=== PATIENT | female | born 1995 | race Caucasian/White ===

== ENCOUNTER 2018-03-07 15:03 | Emergency (ER) | payer MEDICAID ==
[~2018-03-07] VITALS: Ht 175.3 cm; Wt 86.4 kg
[~2018-03-07 15:03] MED LIST: CEPH500C5 PO; DEC4T PO; HYDR-569 PO
[2018-03-07 15:18] VITALS: BP 115/60
[2018-03-07] MEDS ORDERED: BUPIVAcaine/PF 2.5 mg/ml (0.25%) 30ml vial IJ ONE (15:55)
[2018-03-07] MEDS ORDERED: acetaminophen 325mg tablet PO ONE (16:25)
[2018-03-07] MEDS ORDERED: ibuprofen tablet 400 MG TABLET PO ONE (16:25)
== END 2018-03-07 16:30 | disposition home or self-care (01) ==
LOC: ER 15:03
DX: L02.213 Cutaneous abscess of chest wall (principal); F15.10 Other stimulant abuse, uncomplicated; F11.10 Opioid abuse, uncomplicated; Z79.899 Other long term (current) drug therapy
CPT/HCPCS: 10060; 99283; J3490

== ENCOUNTER 2018-04-20 23:19 | Emergency (ER) | payer MEDICAID ==
[~2018-04-20] VITALS: Ht 175.3 cm; Wt 85.2 kg
[2018-04-20 23:32] VITALS: BP 117/71
[2018-04-20] MEDS ORDERED: SULF1TAB49 PO (23:52)
[2018-04-20] MEDS ORDERED: CEPH-572 PO (23:52)
== END 2018-04-21 00:02 | disposition home or self-care (01) ==
LOC: ER 23:20
DX: L03.115 Cellulitis of right lower limb (principal); F15.10 Other stimulant abuse, uncomplicated; F11.10 Opioid abuse, uncomplicated; Z59.0 Homelessness; Z79.899 Other long term (current) drug therapy
CPT/HCPCS: 29105; 96374; 99283; 99284

== ENCOUNTER 2018-06-02 07:59 | Emergency (ER) | payer MEDICAID ==
[~2018-06-02] VITALS: Ht 175.3 cm; Wt 88.0 kg
[~2018-06-02 07:59] MED LIST changes: -CEPH500C5 PO
[2018-06-02 08:00] VITALS: BP 126/86
[2018-06-02] MEDS ORDERED: bacitracin 15gm ointment TP ONE (08:10)
[2018-06-02] MEDS ORDERED: LIDOcaine 1.5% w/epinephrine 1:200,000 5ml ampul IJ ONE (08:10)
[2018-06-02] MEDS ORDERED: acetaminophen 325mg tablet PO ONE (08:10)
[2018-06-02] MEDS ORDERED: CLIN150C8 PO (09:43)
== END 2018-06-02 09:50 | disposition home or self-care (01) ==
LOC: ER 08:00
DX: L02.413 Cutaneous abscess of right upper limb (principal); F15.90 Other stimulant use, unspecified, uncomplicated; F11.90 Opioid use, unspecified, uncomplicated; Z86.14 Personal history of Methicillin resistant Staphylococcus aureus infection; Z79.899 Other long term (current) drug therapy; Z59.0 Homelessness
CPT/HCPCS: 10060; 99283; A6255; A6266; A6449; J3490

== ENCOUNTER 2019-01-17 01:26 | Emergency (ER) | payer MEDICAID ==
[~2019-01-17] VITALS: Ht 175.3 cm; Wt 83.5 kg
[~2019-01-17 01:26] MED LIST changes: +CLIN150C8 PO; +HYDR-4383 PO; -HYDR-569 PO
[2019-01-17 01:29] VITALS: BP 127/77
[2019-01-17] MEDS ORDERED: SULF1TAB49 PO (02:28)
== END 2019-01-17 02:39 | disposition home or self-care (01) ==
LOC: ER 01:27
DX: L03.116 Cellulitis of left lower limb (principal); F41.9 Anxiety disorder, unspecified; F15.90 Other stimulant use, unspecified, uncomplicated; F11.90 Opioid use, unspecified, uncomplicated; F17.200 Nicotine dependence, unspecified, uncomplicated; Z59.0 Homelessness
CPT/HCPCS: 99283

== ENCOUNTER 2019-11-19 20:44 | Emergency (ER) | payer MEDICAID, OTHER ==
[~2019-11-19] VITALS: Ht 175.3 cm; Wt 109.1 kg
[~2019-11-19 20:44] MED LIST changes: +LIDOcaine 1% W/epiNEPHrine 1:100,000 20ml vial ONE
[2019-11-19 20:45] VITALS: BP 130/77
[2019-11-19] MEDS ORDERED: clindamycin 150mg capsule PO ONE (21:00)
[2019-11-19] MEDS ORDERED: ondansetron 4mg rapidly disintigrating tab PO ONE (21:00)
[2019-11-19] MEDS ORDERED: ketorolac trometh inj. 60 MG/2 ML VIAL IM ONE (21:00)
[2019-11-19] MEDS ORDERED: CLIN150C8 PO (21:20)
== END 2019-11-19 21:27 | disposition home or self-care (01) ==
LOC: ER 20:45
DX: L02.415 Cutaneous abscess of right lower limb (principal); F41.9 Anxiety disorder, unspecified; F15.90 Other stimulant use, unspecified, uncomplicated; F11.90 Opioid use, unspecified, uncomplicated; Z59.0 Homelessness; Z86.14 Personal history of Methicillin resistant Staphylococcus aureus infection; Z79.899 Other long term (current) drug therapy
CPT/HCPCS: 10060; 96372; 99283; J1885

== ENCOUNTER 2019-12-11 15:04 | Emergency (ER) | payer MEDICAID, OTHER ==
[~2019-12-11] VITALS: Ht 175.3 cm; Wt 104.0 kg
[~2019-12-11 15:04] MED LIST changes: -LIDOcaine 1% W/epiNEPHrine 1:100,000 20ml vial ONE
[2019-12-11] MEDS ORDERED: sulfamethoxazole/trimethoprim DS (800/160mg) tablet PO ONE (16:05)
[2019-12-11] MEDS ORDERED: CEPH250T PO (16:06)
[2019-12-11] MEDS ORDERED: IBUP-1984 PO (16:06)
[2019-12-11] MEDS ORDERED: BACDS PO (16:06)
[2019-12-11 16:18] VITALS: BP 139/93
== END 2019-12-11 16:20 | disposition home or self-care (01) ==
LOC: ER 15:04
DX: L03.114 Cellulitis of left upper limb (principal); F15.90 Other stimulant use, unspecified, uncomplicated; F11.90 Opioid use, unspecified, uncomplicated; Z86.14 Personal history of Methicillin resistant Staphylococcus aureus infection; Z59.0 Homelessness
CPT/HCPCS: 99283

== ENCOUNTER 2020-02-16 10:10 | Emergency (ER) | payer MEDICAID, OTHER ==
[~2020-02-16] VITALS: Ht 175.3 cm; Wt 109.0 kg
[2020-02-16 10:14] VITALS: BP 163/83
[2020-02-16] MEDS ORDERED: DOXY100C76 PO (10:18)
[2020-02-16] MEDS ORDERED: CefTRIAXone 250MG IM Kit w/LIDOcaine IM ONE (10:20)
[2020-02-16] MEDS ORDERED: CefTRIAXone 250MG inj IM ONE (10:20)
--- NOTE | 2020-02-16 10:31 | NUR ---
patient giving ua then rocephin IM will be administered
--- NOTE | 2020-02-16 11:02 | NUR ---
patient having trouble giving a UA, gave more water to patient to drink,will try again shortly
[2020-02-16 11:40] LABS: URINE HCG NEGATIVE (NEG)
[2020-02-16 11:46] LABS: CLARITY,URINE CLEAR (Clear); COLOR,URINE YELLOW (Yellow); GLUCOSE, URINE NEGATIVE (Neg); KETONES,URINE NEGATIVE (Neg); LEUKOCYTE ESTERASE ,URINE NEGATIVE (Neg); NITRITES, URINE NEGATIVE (Neg); OCCULT BLOOD,URINE NEGATIVE (Neg); PROTEIN,URINE NEGATIVE (Neg)
[2020-02-16 11:51] LABS: UA COLLECTION TYPE VOIDED
== END 2020-02-16 11:35 | disposition home or self-care (01) ==
LOC: ER 10:11
DX: R30.0 Dysuria (principal); N89.8 Other specified noninflammatory disorders of vagina; F41.9 Anxiety disorder, unspecified; F15.90 Other stimulant use, unspecified, uncomplicated; F11.90 Opioid use, unspecified, uncomplicated; Z20.2 Contact with and (suspected) exposure to infections with a predominantly sexual mode of transmission; Z59.0 Homelessness; Z86.14 Personal history of Methicillin resistant Staphylococcus aureus infection
CPT/HCPCS: 36415; 81003; 81025; 87491; 87591; 96372; 99283; J0696

== ENCOUNTER 2020-06-11 22:17 | Emergency (ER) | payer OTHER ==
[~2020-06-11] VITALS: Ht 175.3 cm; Wt 114.7 kg
[2020-06-11] MEDS ORDERED: LIDOcaine 1% W/epiNEPHrine 1:200,000 10ml vial IJ ONE (23:55)
[2020-06-12 00:21] LABS: CLARITY,URINE CLEAR (Clear); COLOR,URINE YELLOW (Yellow); GLUCOSE, URINE NEGATIVE (Neg); KETONES,URINE NEGATIVE (Neg); LEUKOCYTE ESTERASE ,URINE NEGATIVE (Neg); NITRITES, URINE NEGATIVE (Neg); OCCULT BLOOD,URINE LARGE (Neg); PH,URINE 6.5 (4.8-8.0); PROTEIN,URINE TRACE mg/dl (Neg)
[2020-06-12 00:23] LABS: URINE HCG NEGATIVE (NEG)
[2020-06-12] MEDS ORDERED: sulfamethoxazole/trimethoprim DS (800/160mg) tablet PO ONE (00:25)
[2020-06-12] MEDS ORDERED: cephalexin 500mg capsule PO ONE (00:25)
[2020-06-12 00:29] LABS: UA COLLECTION TYPE CLN CATCH MIDSTREAM
[2020-06-12 00:31] LABS: BACTERIA,URINE FEW /HPF (Neg); SQUAMOUS EPITHELIAL CELL,UR FEW /LPF (FEW); WBC,URINE 0-4 /HPF (0-4)
[2020-06-12 00:46] LABS: ALANINE AMINOTRANSFERASE 112 U/L (12-78); ALBUMIN 3.4 G/DL (3.4-5.0); ALBUMIN/GLOBULIN RATIO 0.6 (1.1-1.5); ALKALINE PHOSPHATASE 113 IU/L (46-116); ANION GAP 9 (8-16); ASPARTATE AMINO TRANSFERASE 82 U/L (10-37); BILIRUBIN,TOTAL 0.5 MG/DL (0.1-1.0); BLOOD UREA NITROGEN 13 MG/DL (7-18); BUN/CREATININE RATIO 16.3 (6.6-38.0); CALCIUM 8.8 MG/DL (8.5-10.1); CHLORIDE 101 MMOL/L (99-107); GLUCOSE 93 MG/DL (70-104); POTASSIUM 3.5 MMOL/L (3.5-5.1); SODIUM 135 MMOL/L (135-145); TOTAL CARBON DIOXIDE 25.1 MMOL/L (24-32); TOTAL PROTEIN 8.7 G/DL (6.4-8.2); eGFR 87 ML/MIN
[2020-06-12] MEDS ORDERED: BACDS PO (00:48)
[2020-06-12] MEDS ORDERED: CEPH250T PO (00:48)
[2020-06-12 00:52] VITALS: BP 118/78
== END 2020-06-12 00:53 | disposition home or self-care (01) ==
LOC: ER 22:17
DX: L02.511 Cutaneous abscess of right hand (principal); L03.113 Cellulitis of right upper limb; F41.9 Anxiety disorder, unspecified; F15.90 Other stimulant use, unspecified, uncomplicated; F11.90 Opioid use, unspecified, uncomplicated; Z86.14 Personal history of Methicillin resistant Staphylococcus aureus infection; Z59.0 Homelessness; Z79.2 Long term (current) use of antibiotics
CPT/HCPCS: 10060; 36415; 80053; 81001; 81025; 87070; 87077; 87186; 99283

== ENCOUNTER 2020-11-04 13:46 | Emergency (ER) | payer MEDICAID ==
[~2020-11-04] VITALS: Ht 175.3 cm; Wt 121.8 kg
[2020-11-04 13:53] VITALS: BP 113/69
[2020-11-04] MEDS ORDERED: azithromycin 250mg tablet PO ONE (14:45)
[2020-11-04] MEDS ORDERED: CefTRIAXone 250MG IM Kit w/LIDOcaine IM ONE (14:45)
== END 2020-11-04 15:33 | disposition home or self-care (01) ==
LOC: ER 13:47
DX: N89.8 Other specified noninflammatory disorders of vagina (principal); F15.90 Other stimulant use, unspecified, uncomplicated; Z86.14 Personal history of Methicillin resistant Staphylococcus aureus infection; Z59.0 Homelessness; Z72.89 Other problems related to lifestyle
CPT/HCPCS: 36415; 87491; 87591; 96372; 99283; J0696

== ENCOUNTER 2022-03-28 15:27 | Emergency (ER) | payer MEDICAID ==
[~2022-03-28] VITALS: Ht 175.3 cm; Wt 145.4 kg
[2022-03-28 15:56] VITALS: BP 115/75
[2022-03-28] MEDS ORDERED: CefTRIAXone 1000mg IM Kit (w/lidocaine diluent) IM STA (16:36)
[2022-03-28] MEDS ORDERED: NAPR-56 PO (16:39)
[2022-03-28] MEDS ORDERED: CEPH250T PO (16:39)
[2022-03-28] MEDS ORDERED: azithromycin 250mg tablet PO ONE (16:40)
[2022-03-28] MEDS ORDERED: CefTRIAXone 500MG IM Kit w/LIDOcaine IM STA (16:42)
[2022-03-28 17:06] LABS: URINE HCG NEGATIVE (NEG)
[2022-03-28 17:12] LABS: CLARITY,URINE CLOUDY (Clear); COLOR,URINE YELLOW (Yellow); GLUCOSE, URINE NEGATIVE (Neg); KETONES,URINE NEGATIVE (Neg); LEUKOCYTE ESTERASE ,URINE SMALL (Neg); NITRITES, URINE NEGATIVE (Neg); OCCULT BLOOD,URINE NEGATIVE (Neg); PROTEIN,URINE NEGATIVE (Neg); UROBILINOGEN,URINE 0.2 E.U/dL (0.2-1.0)
[2022-03-28 17:13] LABS: UA COLLECTION TYPE VOIDED
[2022-03-28 17:37] LABS: MUCUS STRANDS MODERATE /LPF (Neg); SQUAMOUS EPITHELIAL CELL,UR MANY /LPF (FEW)
[2022-03-28 17:38] LABS: WBC,URINE 20-30 /HPF (0-4)
[2022-03-28 17:42] LABS: BACTERIA,URINE 1+ /HPF (Neg); RBC,URINE 0-2 /HPF (0-2); TRICHOMONAS,URINE MANY /HPF (NEGATIVE)
[2022-03-28 17:43] LABS: WBC CLUMPS,URINE MODERATE /HPF (NEGATIVE)
== END 2022-03-28 17:03 | disposition home or self-care (01) ==
LOC: ER 15:28
DX: K04.7 Periapical abscess without sinus (principal); N89.8 Other specified noninflammatory disorders of vagina; R30.0 Dysuria; R22.0 Localized swelling, mass and lump, head; F41.9 Anxiety disorder, unspecified; F15.90 Other stimulant use, unspecified, uncomplicated; F11.90 Opioid use, unspecified, uncomplicated; Z86.14 Personal history of Methicillin resistant Staphylococcus aureus infection; Z79.2 Long term (current) use of antibiotics; Z79.899 Other long term (current) drug therapy
CPT/HCPCS: 36415; 81001; 81025; 87491; 87591; 96372; 99283; J0696

== ENCOUNTER 2023-08-09 12:48 | Emergency (ER) | payer MEDICAID ==
[~2023-08-09] VITALS: Ht 175.3 cm; Wt 145.0 kg
[2023-08-09 13:41] VITALS: BP 136/76; PULSE 80; RESP 18; TEMP 98; O2SAT 97
[2023-08-09] MEDS ORDERED: HYDR-3973 PO (14:39)
[2023-08-09] MEDS ORDERED: AMOX-580 PO (14:39)
== END 2023-08-09 14:54 | disposition home or self-care (01) ==
LOC: ER 12:49
DX: K04.7 Periapical abscess without sinus (principal); F15.90 Other stimulant use, unspecified, uncomplicated; F11.90 Opioid use, unspecified, uncomplicated; Z86.14 Personal history of Methicillin resistant Staphylococcus aureus infection; Z79.2 Long term (current) use of antibiotics; Z79.899 Other long term (current) drug therapy
CPT/HCPCS: 99283

== ENCOUNTER 2024-01-18 00:09 | Emergency (ER) | payer MEDICAID ==
[~2024-01-18] VITALS: Ht 175.3 cm; Wt 136.4 kg
[2024-01-18 00:18] VITALS: BP 143/80; RESP 16; TEMP 98.2; O2SAT 99
[2024-01-18] MEDS ORDERED: IBUP-1984 PO (01:19)
== END 2024-01-18 01:36 | disposition home or self-care (01) ==
LOC: ER 00:09
DX: S80.02XA Contusion of left knee, initial encounter (principal); F41.9 Anxiety disorder, unspecified; F15.90 Other stimulant use, unspecified, uncomplicated; F11.90 Opioid use, unspecified, uncomplicated; Z72.89 Other problems related to lifestyle; W01.0XXA Fall on same level from slipping, tripping and stumbling without subsequent striking against object, initial encounter; Y93.89 Activity, other specified; Y92.89 Other specified places as the place of occurrence of the external cause; Y99.8 Other external cause status
CPT/HCPCS: 73564; 99283

== ENCOUNTER 2024-02-05 10:21 | Emergency (ER) | payer MEDICAID ==
[~2024-02-05] VITALS: Ht 175.3 cm; Wt 151.7 kg
[~2024-02-05 10:21] MED LIST changes: -CLIN150C8 PO; -DEC4T PO; -HYDR-4383 PO; +IBUP-1984 PO
[2024-02-05 10:52] VITALS: BP 158/88; PULSE 104; RESP 18; TEMP 99.5; O2SAT 100
[2024-02-05] MEDS ORDERED: PRED20TA PO (11:10)
[2024-02-05] MEDS ORDERED: DOXY-1 PO (11:10)
== END 2024-02-05 11:23 | disposition home or self-care (01) ==
LOC: ER 10:21
DX: L24.9 Irritant contact dermatitis, unspecified cause (principal); F15.90 Other stimulant use, unspecified, uncomplicated; Z79.1 Long term (current) use of non-steroidal anti-inflammatories (NSAID)
CPT/HCPCS: 99283

== ENCOUNTER 2025-06-06 02:50 | Emergency (ER) | payer MEDICAID ==
[~2025-06-06] VITALS: Ht 175.3 cm; Wt 136.4 kg
[2025-06-06 03:10] VITALS: BP 129/82; PULSE 105; O2SAT 96
[2025-06-06 03:17] VITALS: RESP 10
[2025-06-06] MEDS ORDERED: CLIN300C3 PO (03:29)
--- NOTE | 2025-06-06 03:30 | Physician Documentation ---
History of Present Illness ~ Chief Complaint: Breast pain Stated Complaint: INFECTION Time Seen by MD: 03:22 Primary Medical Doctor: NO PMD Mode of Arrival: POV HPI 29 year old female with pain and redness beneath both breasts that started yesterday. No fevers, chills, N/V/d Tetanus within 5 years?: Yes Medication Reconciliation Allergies: Coded Allergies: No Known Allergies (Unverified , 02/05/24) Past Medical History Past Medical History: Cellulitis, MRSA Abscess, Anxiety Past Surgical History: noncontributory Alcohol Use: Rarely Drug Use: methamphetamine, heroin Lives with: Family Lives In: Home Review of Systems All Other Systems at this time: Reviewed and Negative Physical Exam Vital Signs: RN Vital Signs have been reviewed: Yes, Temperature: 98.3, Source: Oral, Heart Rate: 105, Respiratory Rate: 10, BP: 129/82, Pulse Oximetry: 96, Weight: 136.360 Oxygen Flow Rate: 0 General Appearance HEENT: PERRL, moist oral mucosa, EOMI Pulmonary: No respiratory distress Cardiac: RRR, no murmur, rub or gallop GI: nondistended, soft, nontender, no guarding, no rebound MSK: no deformity Skin: w/d/i, bilateral breasts with inferior erythema, tenderness, induration Neuro: alert, nonfocal Psych: normal affect Progress Results/Orders Results/Orders Vital Signs 06/06/25 06/06/25 06/06/25 02:53 03:10 03:17 Temp 98.3 98.3 Pulse 106 105 Resp 16 16 10 B/P (MAP) 150/80 129/82 (98) Pulse Ox 96 96 O2 Flow Rate 0 0 Medical Decision Making Findings 29 year old female with what appears to be cellulitis beneath both breasts. Rx Abx and return precautions. Differential Dx:Considerations: Include: Cellulitis, Mastitis Departure Disposition: HOME / SELF CARE / HOMELESS Impression: Primary Impression: Cellulitis Condition: Stable Discharge Instructions: Cellulitis, Adult Referrals: NO PRIMARY CARE PROVIDER (PCP) Prescriptions Clindamycin HCl (Cleocin HCl) 300 Mg Capsule 1 CAP PO Q12H for 7 Days, #14 CAP Prov: JOSE M RBOWNING MD 06/06/25 Education Educated: Patient Educated regarding: diagnosis, treatment, prognosis, need for follow up Signature Scribe Signature: . Attestation: , JOSE M BROWNING MD Jun 06, 2025 03:30
[2025-06-06 03:43] VITALS: TEMP 98.3
== END 2025-06-06 03:45 | disposition home or self-care (01) ==
LOC: ER 02:51
DX: N61.0 Mastitis without abscess (principal); F41.9 Anxiety disorder, unspecified; F15.90 Other stimulant use, unspecified, uncomplicated; F11.90 Opioid use, unspecified, uncomplicated
CPT/HCPCS: 99283